=== PATIENT | male | born 1960 | race Caucasian/White ===

== ENCOUNTER 2019-07-09 11:52 | Day surgery (SDC) | payer BC, OTHER ==
[~2019-07-09 11:52] MED LIST: GLYCOPYRROLATE 1 MG/5 ML VIAL ONE; LACTATED RINGERS 1000 ML IV PRN; SUCCINYLCHOLINE CHLORIDE INJ 200 MG/10 ML VIAL ONE
[2019-07-09] MEDS ORDERED: ONDANSETRON HCL INJ/PF 4 MG/2 ML SDV ONE (13:57)
[2019-07-09] MEDS ORDERED: LIDOCAINE 2% INJ-PF (20 MG/ML) 10 ML AMPUL ONE (13:57)
[2019-07-09] MEDS ORDERED: DEXAMETHASONE SOD PHOSPHATE INJ 4 MG/1 ML VIAL ONE (13:57)
[2019-07-09] MEDS ORDERED: PROPOFOL INJ 200 MG/20 ML VIAL IV ONE (13:58)
[2019-07-09] MEDS ORDERED: MIDAZOLAM 2 MG/2 ML INJ ONE (13:58)
[2019-07-09] MEDS ORDERED: EPINEPHRINE INJ 1 MG/10 ML DISP.SYRIN ONE (14:38)
--- NOTE | 2019-07-09 15:00 | Operative Report ---
Operative Report DATE OF SURGERY: 07/09/19 Operative Report: Pre-op diagnosis: Recurrent abdominal pain with transient elevation of LFTs Post-op diagnosis: Common bile duct sludge Surgery: ERCP with sphincterotomy, balloon sludge extraction and epinephrine injection Medications: As per anesthesia Tissue removed: None Procedure: After informed consent obtained from patient, patient was placed under general anesthesia. The ERCP endoscope was then inserted into the esophagus blindly and advanced into the stomach. The duodenum was entered and the ampulla was identified. Using the triple-lumen sphincterotomy catheter the common bile duct was freely cannulated. Patient previously had a sphincterotomy. A cholangiogram was obtained . The sphincterotomy was slightly extended using the endocut mode. The catheter was removed over the guidewire before a 9-12 mm balloon catheter was inserted. The balloon was inflated to 12 mm in the proximal common bile duct and pulled down the duct. The duct was swept two more times. A balloon occlusion cholangiogram was normal. Patient tolerated procedure well. Findings Common bile duct: Small amount of sludge was extracted. The duct was of normal size. There was some residual bleeding from the sphincterotomy site and this was controlled with epinephrine injection. Intrahepatic ducts: Normal Pancreatic duct: Not cannulated Plan: Follow-up LFTs OPERATION: .
--- NOTE | 2019-07-09 15:52 | RADIOLOGY REPORT (SQ) ---
EXAM DESCRIPTION: ENDO CATH/BILIARY DUCT IMAGES COMPLETED DATE/TIME: 07/09/2019 3:26 pm REASON FOR STUDY: ERCP IN OR R94.5 ABNORMAL RESULTS OF LIVER FUNCTION STUDIES COMPARISON: None. FLUOROSCOPY TIME: 1.5 minutes 4 digital C-arm images saved to PACS. TECHNIQUE: Intra-operative images acquired during surgical procedure to evaluate progress. NUMBER OF IMAGES: 4 digital C-arm images LIMITATIONS: None. FINDINGS: ERCP performed by . Initial injection of contrast demonstrates multiple common bile duct stones. Clips post cholecystect nataliia. Subsequent images demonstrate a balloon tip catheter sweeping the common bile duct. No intrahepatic biliary ductal dilatation. Please see the operative report for further details IMPRESSION: IMAGE(S) OBTAINED DURING PROCEDURE. COMMENT: Quality ID [id number]: Final reports for procedures using fluoroscopy that document radiation exp osure indices, or exposure time and number of fluorographic images (if radiation exposure indices are not available) Please consult full operative report of the attending physician for description of the procedure. TECHNICAL DOCUMENTATION: JOB ID: [id number] 2010 [employer]- All Rights Reserved Reading location - IP/workstation name: [email or web address]
[2019-07-09 17:52] VITALS: BP 130/74
== END 2019-07-09 17:10 | disposition home or self-care (01) ==
LOC: OROUT 11:52
PROVIDERS: ATTEND Internal Medicine Gastroenterology
DX: K83.8 Other specified diseases of biliary tract (principal); R94.5 Abnormal results of liver function studies; Z03.818 Encounter for observation for suspected exposure to other biological agents ruled out; Z86.010 Personal history of colon polyps; R10.13 Epigastric pain
CPT/HCPCS: 43236; 43264; 87635; 74328; 00732; Q9967; J2250; J1100; J0171; J0330; J2405; J2704; J3490 ×2; 732

== ENCOUNTER → 2019-10-04 | Outpatient (CLI) | payer BC ==
--- NOTE | 2019-10-04 09:40 | RADIOLOGY REPORT (SQ) ---
EXAM DESCRIPTION: U/S ABDOMEN LIMITED W/O DOP IMAGES COMPLETED DATE/TIME: 10/04/2019 9:18 am REASON FOR STUDY: ABN LFT (R94.5) R94.5 ABNORMAL RESULTS OF LIVER FUNCTION STUDIES COMPARISON: None. TECHNIQUE: Dynamic and static grayscale images acquired of the abdomen and recorded on PACS. Additio nal selected color Doppler and spectral images recorded. LIMITATIONS: None. FINDINGS: PANCREAS: Tail obscured by overlying bowel gas. Otherwise unremarkable. LIVER: Mildly increased echogenicity with decreased visualization of the portal triads. No focal les ions. No intrahepatic ductal dilation. LIVER VASCULATURE: Normal directional flow of the main portal vein and hepatic veins. GALLBLADDER: Surgically absent. ULTRASOUND-DETECTED BAUER'S SIGN: Not applicable. INTRAHEPATIC DUCTS AND COMMON DUCT: Mild prominence of the CBD, likely sequelae of cholecystectomy. No intrahepatic ductal dilation. INFERIOR VENA CAVA: Normal flow. AORTA: No aneurysm. RIGHT KIDNEY: Normal size measuring 9.8 cm. Normal echogenicity. No solid or suspicious masses. No hydronephrosis. No calcifications. PERITONEAL AND RIGHT PLEURAL SPACE: No ascites or effusions. OTHER: No other significant findings. IMPRESSION: Hepatic steatosis. Prior cholecystectomy. Otherwise, unremarkable abdominal ultrasound. TECHNICAL DOCUMENTATION: JOB ID: [id number] 2010 [employer]- All Rights Reserved Reading location - IP/workstation name: [email or web address]
[2019-10-05 11:42] LABS: HEPATITS B SURFACE ANTIGEN Negative (Negative)
== END ==
LOC: RAD 07:44
PROVIDERS: ATTEND Internal Medicine Gastroenterology
DX: R94.5 Abnormal results of liver function studies (principal)
CPT/HCPCS: 36415; 76705; 86038; 86256; 86317; 87340